=== PATIENT | male | born 1935 | race Caucasian/White ===

== ENCOUNTER 2021-02-03 18:11 | Emergency (ER) | payer MEDICARE, BC ==
[~2021-02-03] VITALS: Ht 177.8 cm; Wt 60.3 kg
--- NOTE | 2021-02-03 20:00 | NUR ---
PT BIBWIFE WITH C/O INCREASED AGITATION/COMPATIVE. REQUESTIONG GPS ADMISSION. PT ALERT AND ORIENTED X1. BROUGHT IN ON WHEELCHAIR. NON LABORED BREATHING.
--- NOTE | 2021-02-03 20:26 | NUR ---
JAMIE DONE AND SENT TO LAB.
[2021-02-03] MEDS ORDERED: LIDOCAINE 2% JEL UROJET 10 ML MM ONE (21:54)
--- NOTE | 2021-02-03 22:00 | NUR ---
URINE COLLECTED AND SENT TO LAB.
[2021-02-03 22:03] LABS: HEMOGLOBIN 14.2 g/dL (13.5-17.5); WHITE BLOOD COUNT (AUTO) 4.4 K/uL (4.3-11.0)
[2021-02-03 22:13] LABS: CARBON DIOXIDE 31 mmol/L (21-32); CHLORIDE 108 mmol/L (98-107); CREATININE 0.8 mg/dL (0.6-1.3); GLUCOSE 96 mg/dL (74-106); POTASSIUM 4.3 mmol/L (3.5-5.1); SODIUM SERUM 144 mmol/L (136-145); UREA NITROGEN, BLOOD 21 mg/dL (7-18)
[2021-02-03 22:15] LABS: BASOPHILS % (AUTO) 0.8 % (0.0-2.0); EOSINOPHILS % (AUTO) 1.4 % (0.0-6.0); HEMATOCRIT 42 % (39-51); LYMPHOCYTES # (AUTO) 1.7 K/uL (0.8-4.8); LYMPHOCYTES % (AUTO) 38.3 % (20.0-44.0); MEAN CORPUSCULAR HGB CONC 34 g/dl (31.0-36.0); MEAN CORPUSCULAR VOLUME 94 fL (80-96); MONOCYTES # (AUTO) 0.4 K/uL (0.1-1.30); MONOCYTES % (AUTO) 8.4 % (2.0-12.0); NEUTROPHILS # (AUTO) 2.2 K/uL (1.8-8.9); NEUTROPHILS % (AUTO) 51.1 % (43.0-81.0); PLATELET COUNT (AUTO) 222 K/uL (150-450); RED BLOOD CELL COUNT(AUTO) 4.51 MIL/uL (4.5-6.0)
[2021-02-03 22:19] LABS: ALANINE AMINOTRANSFERASE 20 U/L (12-78); ALBUMIN 2.8 g/dL (3.4-5.0); ALCOHOL, BLOOD < 3 mg/dL (0-0); ALKALINE PHOSPHATASE 74 U/L (46-116); ASPARTATE AMINOTRANSFERASE 21 U/L (15-37); BILIRUBIN,DIRECT 0.2 mg/dL (0.0-0.2); BILIRUBIN,TOTAL 0.6 mg/dL (0.2-1.0); TOTAL PROTEIN, SERUM 6.7 g/dL (6.4-8.2)
[2021-02-03 22:20] LABS: ACETAMINOPHEN < 2 ug/ml (10-30)
[2021-02-03] MEDS ORDERED: DEXAMETHASONE SOD PHOSPHATE 10 MG/ML VIAL ONE (22:22)
[2021-02-03] MEDS ORDERED: LEVETIRACETAM (500MG) 500 MG/5 ML VIAL IV ONE (22:22)
[2021-02-03 22:23] LABS: BILIRUBIN,URINE SMALL (NEGATIVE); COLOR,URINE YELLOW (YELLOW); LEUKOCYTE ESTERASE ,URINE Negative (NEGATIVE); NITRITE, URINE Negative (NEGATIVE); PH,URINE 6.5 (5.0-8.0); PROTEIN,URINE 30 mg/dl (NEGATIVE); UGLUCOSE Negative (NEGATIVE); UROBILINOGEN,URINE 0.2 EU/dL (0.2)
[2021-02-03 22:28] LABS: BACTERIA,URINE Rare /HPF (None Seen); SQUAMOUS EPITHELIAL CELL,UR Few /HPF (None Seen); WBC,URINE NONE SEEN /HPF (0-3)
[2021-02-03] MEDS ORDERED: LEVETIRACETAM (500MG) 500 MG in IV NS 0.9% 100 ML IV SCH (22:30)
[2021-02-03] MEDS ORDERED: DEXAMETHASONE SOD PHOSPHATE 10 MG/ML VIAL IV ONE (22:30)
--- NOTE | 2021-02-03 22:36 | NUR ---
FACESHEET AND CLINICALS FAXED TO [facility]. [phone]
--- NOTE | 2021-02-03 23:32 | NUR ---
ADDENDUM: Intravenous End Time Documentation: Keppra 500 milligram IVPB: start time:2332 PM ; end time: 2403 am : IV site: LAC PIV # 18 Port # 1
--- NOTE | 2021-02-04 | NUR ---
CALL FROM [facility]. PT ACCEPTED TO [facility] BY DR ESPARZA. ROOM 4401-1. # FOR REPORT [phone]
--- NOTE | 2021-02-04 00:06 | NUR ---
[facility] ETA [id number]
[2021-02-04] MEDS ORDERED: OLANZAPINE 10 MG VIAL IM ONE ×2 (00:43→01:00)
--- NOTE | 2021-02-04 01:16 | NUR ---
report given to felton hooper).
--- NOTE | 2021-02-04 01:22 | NUR ---
pt is unable to swallow medication.
[2021-02-04] MEDS ORDERED: VALPROIC ACID 250 MG/5 ML UDC PO ONE (01:30)
[2021-02-04] MEDS ORDERED: LEVOFLOXACIN (250MG) 250 MG TABLET PO SCH (01:30)
[2021-02-04 01:34] LABS: VALPROIC ACID 61 ug/mL (50-100)
--- NOTE | 2021-02-04 03:19 | NUR ---
REPORT GIVEN TO EMT AND RN, PT TRANSFERED.
[2021-02-04 03:20] VITALS: BP 120/78
[2021-02-04] MEDS ORDERED: QUETIAPINE FUMARATE 100 MG TABLET PO SCH (09:00)
[2021-02-04] MEDS ORDERED: FINASTERIDE (5 MG) 5 MG TABLET PO SCH (09:00)
== END 2021-02-04 03:23 | disposition short-term general hospital (02) ==
LOC: ER 18:20
DX: G93.6 Cerebral edema (principal); I45.10 Unspecified right bundle-branch block; Z20.822 Contact with and (suspected) exposure to COVID-19; F03.90 Unspecified dementia, unspecified severity, without behavioral disturbance, psychotic disturbance, mood disturbance, and anxiety; Z87.440 Personal history of urinary (tract) infections; I10 Essential (primary) hypertension; I45.2 Bifascicular block
CPT/HCPCS: 36415; 70450; 71045; 80048; 80076; 80143; 80164; 80307; 80320; 81001; 82140; 83735; 84484; 85025; 85730; 86850; 87081; 87426; 93005; 96365; 96372; 96375; 99285; J1100; J1953; J3490 ×2; J7030; C9803; G0480